=== PATIENT | female | born 1950 | race Caucasian/White ===

== ENCOUNTER → 2016-11-26 | Outpatient (CLI) | payer OTHER, BC | LOC: BMCIMAGING 14:35 | PROVIDERS: ATTEND Internal Medicine | DX: Z12.31 Encounter for screening mammogram for malignant neoplasm of breast (principal) | CPT/HCPCS: G0202 ==

== ENCOUNTER 2017-01-05 12:55 | Observation (INO) | payer OTHER, BC ==
--- NOTE | 2017-01-05 13:05 | CPEKG ---
Heart Rate: 58 RR Interval: 1034 P-R Interval: 136 QRSD Interval: 84 QT Interval: 416 QTC Interval: 409 P Frankewing: 3 QRS Frankewing: 25 EKG Severity - NORMAL ECG - EKG Impression: SINUS RHYTHM Electronically Signed By: Bear Darnell 06-Jan-2017 16:24:32
--- NOTE | 2017-01-05 13:25 | EDPHY ---
HPI/HX/ROS/PE/MDM Narrative: CHIEF COMPLAINT: Chest pain HISTORY OF PRESENT ILLNESS: The patient is a 66-year-old female presenting with acute chest pain that started around 12 pm. The patient was walking into her house and felt a burning sensation in her throat. She then began to feel the pain in her chest and she became diaphoretic. This discomfort lasted for about 20 minutes. The pain was nonradiating. She had no associated nausea, numbness, or shortness of breath. She continues to have some mild pain in the substernal region, but states it has improved in severity since onset. The patient has experienced a similar chest discomfort twice previously. She was evaluated here and did not require admission. She had a stress test within the past two years that was normal. The patient walks frequently and denies any cardiac symptoms with exertion. No lower extremity pain or swelling. Patient takes Aspirin daily. REVIEW OF SYSTEMS: Aside from elements discussed in the HPI, a comprehensive 10-point review of systems was reviewed and is negative. PAST MEDICAL HISTORY: Seizure disorder, Migraines SOCIAL HISTORY: . Nonsmoker. VITAL SIGNS: Reviewed by me GENERAL: Well-developed, well-nourished, resting comfortably in no respiratory distress. HEENT: Atraumatic. Eyes: No icterus, no injection. Mouth: moist mucous membranes. No erythema or lesions. Neck: supple with no adenopathy. LUNGS: Clear to auscultation bilaterally, no wheezes, rhonchi or rales. CARDIAC: Regular rate and rhythm, no rubs, murmurs or gallops. ABDOMEN: Soft, nontender, nondistended, bowel sounds normal. MUSCULOSKELETAL: Tenderness to anterior chest wall. EXTREMITIES: No trauma. No edema. Range of motion is normal throughout. NEURO: Alert and oriented, grossly nonfocal. SKIN: Warm and dry, no rash. PSYCHIATRIC: Normal mentation, no agitation. ED Course: Patient presents with chest pain. She has no cardiac history or reflux history. This is her third episode of chest pain in the past two years. She had a a normal stress test in 2014. She was here Apr 2016 with elevated troponin of .015 and refused admission at that time. Plan for today includes lab work, Troponin, D-dimer, and chest x-ray. Patient received 0.4mg Nitro. 12-LEAD EKG: Please see the full report in [facility]. My interpretation: Sinus rhythm. T wave inversions inferior leads. Lab work is normal. Chest x-ray shows nothing acute. 1420: I discussed findings with the patient. I recommend admission for serial troponin and further observation. Patient agrees with the plan. 1505: I spoke to the hospitalist, Dr. Painter, who accepts the patient for admission. 66-year-old female with chest pain, her 3rd episode over the last year and a half. Patient reports a stress test being performed a year and a half half ago which was normal per her report. Her chest pain today started in her throat, spread to her anterior chest, associated with diaphoresis. Patient will be admitted to the hospital to rule out acute coronary syndrome. She is in agreement. MDM: After history and physical examination, the differential for chest pain was considered, including but not limited to, myocardial ischemia, acute coronary syndrome, pulmonary embolus, chest wall pain, pleural inflammation and pulmonary infectious causes. - Data Points Imaging Results: Imaging Impressions Chest X-Ray 01/05/17 13:16 Impression: No acute abnormality, or substantial change from 05/11/2016. Imaging: I viewed and interpreted images myself Laboratory Results: Laboratory Results 01/05/17 13:05 01/05/17 13:05 01/05/17 01/05/17 01/05/17 13:05 13:05 13:05 WBC 5.42 10^3/uL 10^3/uL (3.80-9.50) RBC 4.41 10^6/uL 10^6/uL (4.18-5.33) Hgb 13.2 g/dL g/dL (12.6-16.3) Hct 40.0 % % (38.0-47.0) MCV 90.7 fL fL (81.5-99.8) MCH 29.9 pg pg (27.9-34.1) MCHC 33.0 g/dL g/dL (32.4-36.7) RDW 12.0 % % (11.5-15.2) Plt Count 269 10^3/uL 10^3/uL (150-400) MPV 10.2 fL fL (8.7-11.7) Neut % (Auto) 57.3 % % (39.3-74.2) Lymph % (Auto) 29.0 % % (15.0-45.0) Andrews % (Auto) 9.4 % % (4.5-13.0) Eos % (Auto) 2.2 % % (0.6-7.6) Baso % (Auto) 1.7 % % (0.3-1.7) Nucleat RBC Rel Count 0.0 % % (0.0-0.2) Absolute Neuts (auto) 3.11 10^3/uL 10^3/uL (1.70-6.50) Absolute Lymphs (auto) 1.57 10^3/uL 10^3/uL (1.00-3.00) Absolute Monos (auto) 0.51 10^3/uL 10^3/uL (0.30-0.80) Absolute Eos (auto) 0.12 10^3/uL 10^3/uL (0.03-0.40) Absolute Basos (auto) 0.09 10^3/uL 10^3/uL (0.02-0.10) Absolute Nucleated RBC 0.00 10^3/uL 10^3/uL (0-0.01) Immature Gran % 0.4 % % (0.0-1.1) Immature Gran # 0.02 10^3/uL 10^3/uL (0.00-0.10) D-Dimer < 0.27 ug/mLFEU ug/mLFEU (0.00-0.50) Sodium 139 mEq/L mEq/L (134-144) Potassium 4.3 mEq/L mEq/L (3.5-5.2) Chloride 103 mEq/L mEq/L (97-110) Carbon Dioxide 25 mEq/l mEq/l (22-31) Anion Gap 11 mEq/L mEq/L (8-16) BUN 9 mg/dL mg/dL (7-23) Creatinine 0.9 mg/dL mg/dL (0.6-1.0) Estimated GFR > 60 Glucose 87 mg/dL mg/dL (70-100) Calcium 10.0 mg/dL mg/dL (8.5-10.4) Troponin I < 0.012 ng/mL ng/mL (0.000-0.034) Lipase 57 IU/L IU/L (23-300) Medications Given: Discontinued Medications Nitroglycerin (Nitrostat) 0.4 mg SL EDNOW ONE Stop: 01/05/17 13:33 Last Admin: 01/05/17 13:41 Dose: 0.4 mg General Time Seen by Provider: 01/05/17 12:59 Initial Vital Signs: Initial Vital Signs Temperature (C) 37.1 C 01/05/17 12:55 Heart Rate 62 01/05/17 12:55 Respiratory Rate 16 01/05/17 12:55 Blood Pressure 164/88 H 01/05/17 12:55 O2 Sat (%) 94 01/05/17 12:55 O2 Delivery Mode Room Air Allergies/Adverse Reactions: No Known Allergies Allergy (Verified 05/11/16 14:45) Home Medications: Medication Instructions Recorded Divalproex [Depakote Sprinkle 125 125 mg PO HS 05/11/16 MG (*)] Eletriptan HBr [Relpax] 20 mg PO DAILY PRN 05/11/16 Estradiol [Estradiol 1 MG (*)] 0.5 mg PO DAILY 05/11/16 Hyoscyamine Sulfate [Levsin, 0.125 mg PO DAILY PRN 05/11/16 Hyomax-Sl 0.125 mg (*)] Progesterone,Micronized 100 mg PO DAILY 05/11/16 [Prometrium 100mg (RX)] lamoTRIgine [LamICTAL 100 MG (*)] 200 mg PO BID 05/11/16 Aspirin [Aspirin 325 mg (*)] 325 mg PO DAILY PRN 01/05/17 Ibuprofen [Motrin (*)] 200 mg PO BID PRN 01/05/17 Levothyroxine [Synthroid 88 mcg 88 mcg PO DAILY06 01/05/17 (*)] Departure - Departure Disposition: [facility] Inpatient Acute Clinical Impression: Chest pain Qualifiers: Chest pain type: unspecified Qualified Code(s): R07.9 - Chest pain, unspecified Condition: Fair Report Scribed for: Kayli Landry Report Scribed by: Juani Morales Date of Report: 01/05/17 Time of Report: 13:32 Physician Review and Approval Statement: Portions of this note were transcribed by a medical anthropology director. I personally performed a history, physical exam, medical decision making, and confirmed accuracy of information the transcribed note.
[2017-01-05 13:27] LABS: % IMMATURE GRANULYOCYTES 0.4 % (0.0-1.1); ABSOLUTE IMMATURE GRANULOCYTES 0.02 10^3/uL (0.00-0.10); ADD DIFF? NO; ADD MORPH? NO; ADD SCAN? NO; ATYPICAL LYMPHOCYTE FLAG 10 (0-99); FRAGMENT RBC FLAG 0 (0-99); HEMOGLOBIN 13.2 g/dL (12.6-16.3); LEFT SHIFT FLG 0 (0-99); LIPEMIA HEMOLYSIS FLAG 80 (0-99); MEAN CELL HEMOGLOBIN 29.9 pg (27.9-34.1); MEAN CELL VOLUME 90.7 fL (81.5-99.8); MEAN PLATELET VOLUME 10.2 fL (8.7-11.7); PLATELET CLUMPS FLAG 20 (0-99); PLATELET COUNT 269 10^3/uL (150-400); RED BLOOD CELL COUNT 4.41 10^6/uL (4.18-5.33)
[2017-01-05] MEDS ORDERED: NITROGLYCERIN 0.4 MG BTL SL ONE (13:32)
[2017-01-05 13:33] LABS: ANION GAP 11 mEq/L (8-16); CARBON DIOXIDE 25 mEq/l (22-31); CHLORIDE 103 mEq/L (97-110); CREATININE 0.9 mg/dL (0.6-1.0); GLOMERULAR FILTRATION RATE > 60; GLUCOSE 87 mg/dL (70-100); POTASSIUM 4.3 mEq/L (3.5-5.2); SODIUM 139 mEq/L (134-144)
[2017-01-05 13:44] LABS: TROPONIN I < 0.012 ng/mL (0.000-0.034)
[2017-01-05] MEDS ORDERED: ACETAMINOPHEN 325 MG TAB PO PRN (15:42)
[2017-01-05] MEDS ORDERED: ONDANSETRON DISINTEGRATING 4 MG TAB PO PRN (15:42)
[2017-01-05] MEDS ORDERED: ONDANSETRON 4 MG/2 ML VIAL IVP PRN (15:42)
[2017-01-05] MEDS ORDERED: HYOSCYAMINE SULFATE 0.125 MG TAB PO PRN (15:43)
[2017-01-05] MEDS ORDERED: ASPIRIN 325 MG TAB PO PRN (15:43)
[2017-01-05] MEDS ORDERED: ELETRIPTAN HBR 20 MG PO PRN (15:43)
--- NOTE | 2017-01-05 16:16 | GHP ---
[f rep st] HISTORY AND PHYSICAL DATE OF ADMISSION: 01/05/2017 HISTORY OF PRESENT ILLNESS: Ms. Still is a pleasant 66-year-old female who presents with chest p ain. She was admitted here a couple years ago with chest pain. Had negative stress. She was seen here in April of this year and had chest pain and was discharged home after a negative workup. S he did not complete an exercise stress test. She describes it central in her chest associated with diaphoresis but it does not radiate to her arm s or jaw. She does not have heart failure symptoms such as PND, orthopnea, or lower extremity edema . She is historically a very active person running marathons in the past. She now walks about 20 m tera per week and has noticed no decrement in exercise tolerance. Her sister has a history of achal demetrio recently diagnosed. She does not have dysphagia or odynophagia. No fever, chills, cough, sput um, nausea, vomiting, diarrhea. REVIEW OF SYSTEMS: Complete 10-point review of systems conducted negative except as in the HPI. PAST MEDICAL HISTORY: 1. Seizure disorder which she had described as frontal lobe seizures. 2. Hypothyroidism. 3. Migraines. ALLERGIES: No known drug allergies. HOME MEDICATIONS: 1. Aspirin. 2. Divalproex. 3. Eletriptan. 4. Estradiol. 5. Hyoscyamine. 6. Ibuprofen. 7. Lamotrigine. 8. Levothyroxine. 9. Progesterone. SOCIAL HISTORY: She lives in [facility] by [facility]. She is , does not drink a lot of alcohol or use cocaine, nonsmoker. FAMILY HISTORY: Notable for achalasia with no coronary disease. PHYSICAL EXAM: VITAL SIGNS: Temperature 37.1 blood pressure 164/88, now 165/101, pulse 50s and 60s , breathing 16 times a minute, 94% on room air. GENERAL: In no acute distress. HEENT: Sclerae anict fito. Oropharynx clear. Mucous membranes moist. NECK: Supple. No lymphadenopathy or JVD. LUNGS : Clear to auscultation bilaterally. HEART: S1, S2. ABDOMEN: Soft, nontender, nondistended with out rebound or guarding. LOWER EXTREMITIES: No edema. Calves nontender. SKIN: Without rash. CIRILO ROLOGIC: Nonfocal. DIAGNOSTIC DATA: CBC is normal. D-dimer less than 0.27. Chem 7 normal. Troponin less than 0.012. EKG, interpreted by me, shows sinus at 58 with normal axis and intervals. There is a low voltage an d T-wave inversions in the inferior leads. There is perhaps a hint of biphasic Ts in V4 through V5. This is similar but not exactly the same to prior EKGs. Chest x-ray, interpreted by me, shows no acute cardiopulmonary disease. No cardiomegaly. I discussed the case Dr. Kayli Landry. ASSESSMENT/PLAN: This is a this is a 66-year-old female with chest pain. 1. Chest pain. This is somewhat of an atypical story. I suspect it is more likely consistent with an esophageal process. Process as she describes hoarseness of her voice that has developed over trav e. That said, it is reasonable to stress her. We will cycle troponins, check a lipid panel in the morning. I will perform a nuclear medicine stress test with imaging in the morning. 2. Question of reflux. I think that outpatient gastroenterology evaluation would be an appropriate and reasonable thing if this is negative. 3. Seizure disorder. Continue her seizure medications. 4. Hypothyroidism. Continue thyroid medicine. 5. Prophylaxis. Pharmacologic prophylaxis indicated if in the hospital longer than 24 hours. Sequ ential compression devices for now. DISPOSITION: Observation status. /[id number]/MODL
[2017-01-05] MEDS: lamoTRIgine 100 MG TAB PO SCH (19:37)
[2017-01-05] MEDS ORDERED: DIVALPROEX NA 125 MG CAP.SPRINKLE PO SCH (21:00)
[2017-01-06 04:56] LABS: CHOLESTEROL 231 mg/dL (140-220); HIGH DENSITY LIPOPROTEIN 66 mg/dL (40-85); LDL/HDL RATIO 2.18 RATIO (1.00-3.22); LOW DENSITY LIPOPROTEIN 144 mg/dL (80-100); NON-HIGH DENSITY LIPOPROTEIN 165 mg/dL (90-129); TRIGLYCERIDE 108 mg/dL (35-135); VERY LOW DENSITY LIPOPROTEINS 21 mg/dL (8-25)
[2017-01-06 05:06] LABS: TROPONIN I < 0.012 ng/mL (0.000-0.034)
[2017-01-06] MEDS ORDERED: LEVOTHYROXINE 88 MCG TAB PO SCH (06:00)
[2017-01-06] MEDS: lamoTRIgine 100 MG TAB PO SCH (07:55)
[2017-01-06] MEDS: IBUPROFEN 200 MG TAB PO PRN ×2 (07:56→13:39)
[2017-01-06] MEDS ORDERED: PROGESTERONE,MICR 100 MG CAP PO SCH (09:00)
[2017-01-06] MEDS ORDERED: ESTRADIOL 1 MG TAB PO SCH (09:00)
--- NOTE | 2017-01-06 12:19 | CPR ---
[f rep st] NONINVASIVE CARDIAC PROCEDURE REPORT INDICATION FOR TESTING: Chest pressure and abnormal electrocardiogram. PRE: After obtaining informed consent, patient was placed on electrocardiogram. Initial EKG showed sinus rhythm, normal axis, inverted T-waves in inferolateral leads. Patient denies any chest pain, shortness of breath, or symptoms suggesting of ischemia. Initial blood pressure 116/78, saturating 94% on room air. STRESS: The patient was placed on exercise treadmill, following standard Sam protocol with the fo llowing findings: 1. Patient was able to exercise 10 minutes. 2. 10.9 METs. 3. Patient obtained a heart rate of 153 beats per minute, which was 100% MPHR. 4. Patient was noted to have 1-[address] depression in inferolateral leads. 5. Patient had no chest pain or symptoms suggesting of ischemia. 6. SpO2 was greater than 90%. 7. BP variation: Rest 116/78, peak 168/80. 8. Patient had no arrhythmias or ectopic beats during rest, stress, or recovery phases. 9. The test was stopped due to maximum effort. 10. Ewing treadmill score of 0, placing patient in intermediate cardiovascular risk. RECOVERY: Patient recovered for 5 minutes, remained asymptomatic, EKG ST depression returned to bas marie, vital signs remained stable, she remained asymptomatic of symptoms suggesting ischemia. The patient was taken down to Nuclear Medicine for post MPI studies. Vital signs stable. IMPRESSION: A 66-year-old female, undergoing ETT MPI study for evaluation of cardiac ischemia due t o chest pain and abnormal electrocardiogram. The patient's exercise treadmill testing was positive for ischemia, low specificity due to underlying resting EKGs with T-wave inversion. Would recommend to rely on MPI imaging results for true evaluation of ischemia. The patient was asymptomatic of sy mptoms throughout the testing. Results went over with Dr. Myers. Called to hospitalist services. /[id number]/MODL
[2017-01-06 14:33] VITALS: BP 157/87; PULSE 68; RESP 14; O2SAT 98
[2017-01-06 14:34] VITALS: TEMP 98.1
[2017-01-06] MEDS ORDERED: PANTOPRAZOLE SODIUM 40 MG TAB PO ONE (14:56)
--- NOTE | 2017-01-06 15:09 | PDDCSUM ---
Discharge Summary Discharge Summary: DISCHARGE SUMMARY FOLLOW-UP ITEMS: Outpatient cardiac CT angio DATE OF ADMISSION: 01/05/2017 DATE OF DISCHARGE: 01/06/2017 DISCHARGE DIAGNOSES: 1. Suspected GERD 2. Acute chest pain 3. Hyperlipidemia CONSULTATIONS: Cardiology PROCEDURES / IMAGING: Nuclear medicine stress test demonstrating small area of possible ischemia at the base CHIEF COMPLAINT: Acute chest pain SUBJECTIVE: Patient is chest pain-free time discharge PHYSICAL EXAM ON DISCHARGE: Systolic blood pressure is 120-140, heart rate 70, afebrile overnight, satting well on room air, alert awake oriented x3, pain level 0/10 LABS ON DISCHARGE: Troponin negative x3, D-dimer negative, LDL 140 HOSPITAL COURSE BY PROBLEM: 1. Suspected GERD. Most likely cause of patient's chest pain is untreated GERD , and we recommended initiating at least 30 days of proton pump inhibitor with as-needed Tums, Maalox, ranitidine as breakthrough. Patient should follow up with primary care provider for this issue. 2. Acute chest pain. The patient's presenting symptoms most likely secondary to untreated GERD, that being said, she did have some possible ischemia an isolated area on her nuclear medicine stress test. The images were evaluated by Dr. Bry Myers, and he felt like the area of defect did not reasonably correspond to vascular stenosis. Consequently, he does not recommend cardiac catheterization at this time, but he does recommend noninvasive further evaluation with cardiac CT angiography, to be performed in the outpatient setting through his office. In the interim, he does recommend aspirin 81 mg, and I recommend enteric-coated. 3. Hyperlipidemia. Patient does have an elevated LDL at 140, she should have dietary counseling and encouragement through PCP office. DISCHARGE MEDICATIONS: Please see official discharge medication reconciliation sheet in chart , pantoprazole 40 mg daily, aspirin 81 mg enteric-coated daily. DISCHARGE INSTRUCTIONS: Please follow up with Dr. Bry Myers to have outpatient CT performed, then follow up Dr. Robb thereafter.
--- NOTE | 2017-01-06 19:36 | GCON ---
[f rep st] CONSULTATION CARDIOLOGY CONSULTATION DATE OF CONSULTATION: 01/06/2017 REFERRING PHYSICIAN: Jadiel Painter MD INDICATIONS: Chest pain. HISTORY OF PRESENT ILLNESS: The patient is a pleasant 66-year-old female who has no known cardiovas cular disease. She has had several admissions over the last 3 or 4 years with episodes of chest dis comfort. On one occasion, she underwent a negative workup and was referred for followup with the [facility] and has seen Dr. José Miguel Moreland in the past. She has not had a coronary angiogram . Her cardiac risk factor profile is benign. Specifically, she has no history of tobacco use, fami ly history of premature atherosclerosis, history of hypertension or significant dyslipidemia. She states she was doing well yesterday. Apparently she was having an argument with her daughter. When she walked into her home later that afternoon, she developed the abrupt onset of a tightness in her throat. Subsequently, she developed slight chest pressure and mild diaphoresis. She had no sh ortness of breath, nausea, vomiting or profuse diaphoresis. She had no radiation to her shoulders o r upper extremities. Her symptoms lasted for 20 minutes and resolved spontaneously. Her symptoms w ere not respirophasic nor did she have cough or hemoptysis. She has no history of DVT. She has had no recent upper respiratory infection or febrile illness. Because of these complaints, she came to the emergency department here, where on arrival she was hemodynamically stable although hypertensiv e with a blood pressure of 164/88. Heart rate has been in the 50s and 60s with no oxygen requiremen t and no fever. She had sequential cardiac enzymes performed overnight which were negative x3. A D -dimer was also negative. Her electrolytes and CBC were unremarkable. Her ECG demonstrated only mi nor nonspecific ST and T changes. She underwent a stress test earlier today. This was performed under the supervision of Favian garcia. Her baseline electrocardiogram demonstrated sinus rhythm with nonspecific ST and T changes. At peak exercise, she had a slight exaggeration of her ST changes without specific findings to sugge st ischemia. Myocardial perfusion imaging demonstrated an equivocal basal septal reversible perfusi on defect. Otherwise, she had normal perfusion and normal ejection fraction. Currently, she is sheila n free and states she feels back to normal. She does have a family history of achalasia. She state s that she has not had difficulties in the past with dyspepsia. PAST MEDICAL HISTORY: 1. History of seizure disorder. 2. History of hypothyroidism. 3. Migraine headaches. ALLERGIES: None. HOME MEDICATIONS: Detailed in chart and not repeated here. SOCIAL HISTORY: She is , has 2 children. They lives in [facility]. She used to be a runner; now she walks on a near-daily basis. She walks about 20 miles per week and does so without any chest pain or limiting symptoms of dyspnea. She has been a lifelong nonsmoker. She dr inks 3 drinks a week. She uses no illicit drugs. 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 FAMILY HISTORY: Notable for achalasia. No history of premature atherosclerosis. REVIEW OF SYSTEMS: Complete 10-point review of systems was performed and is otherwise unremarkable. PHYSICAL EXAMINATION: VITAL SIGNS: Currently, her blood pressure is 149/82, her heart rate 65, katlyn m air saturations are 93% with a respiratory rate is 16. She has been afebrile since admission. GE NERAL: She is a very healthy white female, in no acute distress. HEENT: Normocephalic, atraumatic . She has anicteric sclerae. Oropharynx unremarkable. Carotids 2+ bilaterally with no bruits. Sh e has no jugular venous distention. RESPIRATORY: She speaks in full sentences, using no accessory muscles. On auscultation, she has clear lung lovelace bilaterally. CARDIAC: Precordial inspection u nremarkable. She has no reproducible chest wall tenderness. On auscultation, she has a regular rat e and rhythm without murmurs, gallops, or rubs. ABDOMEN: Soft, nontender, with no mass or hepatosp lenomegaly. Abdominal aorta is not palpable. EXTREMITIES: Well perfused and warm. VASCULATURE: She has 2+ radial, dorsal pedal and posterior tibial pulses. NEUROLOGIC: She is alert and oriented with a pleasant mood and affect. DATABASE: See above. IMPRESSION: Atypical chest pain. She presents with a 20-minute episode of chest discomfort which a pparently comes on the heels of having a disagreement with one of her daughters. She states she was fairly stressed out regarding this particular event. Despite 20 minutes of chest discomfort, her c ardiac enzymes have been normal. Her stress test while interpreted as abnormal I think is likely no rmal. I think the defect that is being called represents the membranous interventricular septum. E luis so, if she were to have a focal mild basal septal defect, this is low risk. I think it is unlik choco that her symptoms are a reflection of underlying ischemia. I think they are more likely to repr esent either stress or dyspepsia. Therefore, at the present time, I think that she can be discharge d home on her current medications. In light of multiple presentations with chest discomfort over e last several years and this mild abnormality on her stress test, I recommended that she have an ou tpatient coronary CTA. She will have this performed and then I would like her to follow up with me in the office to review the results. Further recommendations can be made at that time. /[id number]/MODL
== END 2017-01-06 16:07 | disposition home or self-care (01) ==
LOC: F2W 15:44
PROVIDERS: ADMIT Internal Medicine; ATTEND Internal Medicine
DX: R07.89 Other chest pain (principal); K21.9 Gastro-esophageal reflux disease without esophagitis; E78.5 Hyperlipidemia, unspecified; G40.909 Epilepsy, unspecified, not intractable, without status epilepticus; Z79.82 Long term (current) use of aspirin; E03.9 Hypothyroidism, unspecified
CPT/HCPCS: 71020; 78452; 93005; 93017; A9500; G0378

== ENCOUNTER → 2017-01-15 | Outpatient (CLI) | payer OTHER, BC ==
[~2017-01-15] MED LIST: IOPAMIDOL (ISOVUE 370) 100 ML BTL IV ONE
== END ==
LOC: FIMAGING 12:56
PROVIDERS: ATTEND Internal Medicine Cardiovascular Disease
DX: R07.9 Chest pain, unspecified (principal)
CPT/HCPCS: 75574; Q9967

== ENCOUNTER → 2018-03-11 | Outpatient (CLI) | payer OTHER, BC | LOC: BMCIMAGING 12:41 | PROVIDERS: ATTEND Internal Medicine | DX: Z12.31 Encounter for screening mammogram for malignant neoplasm of breast (principal) ==